=== PATIENT | male | born 1945 | race Caucasian/White ===

== ENCOUNTER 2023-02-01 17:11 | Inpatient (IN) | payer OTHER ==
[~2023-02-01] VITALS: Ht 170.2 cm; Wt 82.1 kg
[~2023-02-01 17:11] MED LIST: CARB200 PO; FAMC500 PO; HYDACE5 PO; RXHYDACE PO; VALA500 PO; [UNRECOGNIZED DRUG - CODE]
[2023-02-01] MEDS ORDERED: CHLO25B PO (17:56)
[2023-02-01] MEDS ORDERED: AMLO10 PO (17:57)
[2023-02-01] MEDS ORDERED: ATOR10 PO (17:57)
[2023-02-01] MEDS ORDERED: ERGO400 PO (17:57)
[2023-02-01] MEDS ORDERED: OMEP20ER PO (17:59)
[2023-02-01 18:46] LABS: BASOPHILS ABSOLUTE AUTO 0.06 K/mm3 (0.00-0.23); BASOPHILS PERCENT AUTO 1 % (0-2); EOSINOPHILS ABSOLUTE AUTO 0.16 K/mm3 (0.00-0.68); EOSINOPHILS PERCENT AUTO 1 % (0-6); Hematocrit 43.9 % (37.0-53.0); Hemoglobin 14.5 g/dL (13.5-17.5); IMMATURE GRAN ABSOLUTE AUTO 0.05 K/mm3 (0.00-0.10); IMMATURE GRAN PERCENT AUTO 0 % (0-1); LYMPHOCYTES ABSOLUTE AUTO 1.28 K/mm3 (0.84-5.20); LYMPHOCYTES PERCENT AUTO 10 % (21-46); MONOCYTES ABSOLUTE AUTO 0.85 K/mm3 (0.16-1.47); MONOCYTES PERCENT AUTO 7 % (4-13); Mean Corpuscular HGB 27.1 pg (26.0-34.0); Mean Corpuscular Volume 82 fL (80-100); Mean Platelet Volume 10.6 fL (9.1-12.4); NEUTROPHILS ABSOLUTE AUTO 10.14 K/mm3 (1.96-9.15); NEUTROPHILS PERCENT AUTO 81 % (41-73); Platelet Count 261 K/mm3 (150-400); RDW Coefficient Variation 14.5 % (11.7-14.2); RDW Standard Deviation 42.5 fL (35.1-46.3); Red Blood Cell Count 5.36 M/mm3 (4.30-5.90); White Blood Cell Count 12.54 K/mm3 (4.00-11.30)
[2023-02-01 19:12] LABS: Base Excess Venous 5.2 mmol/L; Bicarbonate Venous 27.9 mmol/L (24.0-30.0); PCO2 Venous 49.6 mmHg (38-42); pH Blood Venous 7.39 (7.34-7.37)
[2023-02-01 19:24] LABS: International Normalized Ratio 1.07; Prothrombin Time Results 11.2 Sec (9.7-11.5)
[2023-02-02 05:34] LABS: BASOPHILS ABSOLUTE AUTO 0.04 K/mm3 (0.00-0.23); BASOPHILS PERCENT AUTO 0 % (0-2); EOSINOPHILS ABSOLUTE AUTO 0.08 K/mm3 (0.00-0.68); EOSINOPHILS PERCENT AUTO 1 % (0-6); Hematocrit 43.6 % (37.0-53.0); IMMATURE GRAN ABSOLUTE AUTO 0.01 K/mm3 (0.00-0.10); IMMATURE GRAN PERCENT AUTO 0 % (0-1); LYMPHOCYTES PERCENT AUTO 17 % (21-46); MONOCYTES ABSOLUTE AUTO 1.02 K/mm3 (0.16-1.47); MONOCYTES PERCENT AUTO 11 % (4-13); Mean Corpuscular HGB 26.4 pg (26.0-34.0); Mean Corpuscular HGB Conc 32.1 g/dL (31.5-36.5); Mean Corpuscular Volume 82 fL (80-100); Mean Platelet Volume 10.2 fL (9.1-12.4); NEUTROPHILS ABSOLUTE AUTO 6.33 K/mm3 (1.96-9.15); NEUTROPHILS PERCENT AUTO 71 % (41-73); Platelet Count 237 K/mm3 (150-400); RDW Coefficient Variation 14.5 % (11.7-14.2); RDW Standard Deviation 43.8 fL (35.1-46.3); White Blood Cell Count 8.98 K/mm3 (4.00-11.30)
[2023-02-02 05:53] LABS: Bun/Creatinine Ratio 17.4 (12.0-20.0); Calcium, Blood 8.4 mg/dL (8.5-10.1); Creatinine, Blood 0.86 mg/dL (0.60-1.20); Potassium, Blood 3.6 mmol/L (3.5-5.5)
[2023-02-02 08:29] VITALS: BP 171/86
[2023-02-02 14:37] VITALS: BP 145/85
--- NOTE | 2023-02-02 17:31 | NUR ---
SHIFT SUMMARY: PNEUMO WITH CHEST TUBE AND BROKEN RIBS PATIENT IS A&OX4. VS ARE WNL AND IS ON RA WITH >90% OXYGEN SATS. PATIENT WAS PLACED ON WATERSEAL PER DR. ALICIA ORDERS EARLIER IN THE SHIFT AND PATIENT HAS TOLERATED IT WELL. HE HAS GAUZE AND TAPE ON THE ANTERIOR LEFT CHEST WALL THAT IS C/D/I AND PATIENT HAS DENIED SOB OR CHEST PAIN. PATIENTS LEFT SIDE RIB PAIN IS MANAGED WITH PO TRAMADOL AND IV TORADOL. HE IS A SBA TO THE BATHROOM. HE IS TOLERATING PO INTAKE AND IS VOIDING. PATIENT CALLS APPROPRIATELY. HE IS LAYING IN BED WITH FAMILY AT BEDSIDE AND CALL LIGHT IN REACH. THE PLAN IS TO HAVE ANOTHER X-RAY IN THE MORNING TO DETERMINE HIS LUNG STATUS AND TO CONTINUE PAIN MANAGEMENT.
[2023-02-02 20:00] VITALS: BP 177/89
[2023-02-02 20:29] VITALS: BP 170/100
[2023-02-02 21:32] VITALS: BP 188/96
--- NOTE | 2023-02-02 21:45 | NUR ---
CHANGES IN PT ROUGHLY AROUND 1999 THIS NURSE WAS GIVING IV DILAUDID FOR 9/10 PAIN. AFTER MEDICATION GIVEN, NOTICED PT VOICE HAD CHANGED SOUNDING MORE LIKE KASHIF DUCK. & DAUGHTER NOTICED CHANGE IN VOICE & POINTED OUT SWELLING IN L SIDE NECK. BP ELEVATED, SPO2 @92% ON 4L. PT HAD RECIEVED DILAUDID PRIOR WITH NO ADVERSE REACTIONS. ONLY NEW THING ADDED WAS PT PLACED ON CONT WALL SUCTION, TURNED OFF SUCTION SPO2 INCREASED TO 98% ON 3L. CALLED EXTRUDING PRESS OPERATOR HANNAH & DR MOSES ABOUT CHANGES. GAVE IV BENEDRYL & RETURNED PT BACK TO SUCTION PER DR MOSES ORDER. NOTICED R CHEEK & R NECK SWELLING STARTING ALONG c L SIDE NECK SWELLING. DR MOSES @BEDSIDE ROUGHLY 2049, EXPLAINED CHEST TUBE HAD BEEN DISLODGED. AT [address] MOSES AT BEDSIDE PLACING NEW [place] [facility] [place], BP STILL ELEVATED 188 SYSTOLIC, DR MOSES PLACED HOME BP MED ORDER. THIS NURSE & EXTRUDING PRESS OPERATOR HANNAH NOTICED FACIAL SWELLING HAD STARTED TO DECREASE SINCE NEW CT PLACEMENT. WILL CONT TO MONITOR PT.
[2023-02-02 23:02] VITALS: BP 168/90
[2023-02-03 02:25] VITALS: BP 152/70
--- NOTE | 2023-02-03 05:15 | NUR ---
SHIFT SUMMARY AOX4. READ PREVIOUS NOTE PLACED. THORAVENT CT TO LOW CONT SUCTION c SM AMOUNT SANGUNIOUS DRAINAGE 45ML IN CANISTER. BP ELEVATED @BEGINNING OF SHIFT, SYSTOLIC 170-180'S. PT REPORTED HE HADNT TAKEN BP MEDS IN 2 DAYS, INFORMED DR MOSES, GAVE HOME DOSE AMLODIPINE & BP SINCE TRENDED DOWN TO 152/70. HAVING INCREASED WORK OF BREATHING c DIFFICULTY TALKING IN FULL SENTENCES @BEGINNING OF SHIFT, SPO2 93% ON 4L O2-SINCE NEW CT PLACEMENT RESP E/U. REPORTS 5-02/18 PAIN L SIDE CHEST, PAIN INCREASED c COUGHING OR MOVEMENT. MEDICATED 1x c 0.5MG IV DILAUDID, TYLENOL, & IV TORADOL. CREPITUS FELT LUCW AROUND L SIDE NECK. NEW FACIAL SWELLING HAS DECREASED THIS AM FROM LAST NIGHT, HOWEVER R EYE IS ALMOST SWOLLEN SHUT, PT DOES DENY ANY VISION CHANGES. CALL LIGHT & FAMILY @BEDSIDE. WILL MONIOTOR.
[2023-02-03 07:13] VITALS: BP 143/78
--- NOTE | 2023-02-03 14:35 | NUR ---
swelling to r eye gone at this time. face and neck appear back to normal. crepitus still felt around chest. pt able to stand and transfer to bed well. no increased sob at this time. chest tube continues to be connected to suction
[2023-02-03 15:03] VITALS: BP 151/83
--- NOTE | 2023-02-03 16:28 | NUR ---
SHIFT SUMMARY L SIDE PNEUMOTHORAX. PT FACIAL SWELLING CONTINUES TO CHANGE T/O SHIFT BUT OVERALL DECREASED OVER SHIFT. MINIMAL SWELLING TO R EYE AT THIS TIME. CREPTIUS PALPABLE FROM CHEST TO HEAD. PT REPORTS SHORTNESS OF BREATH IS MINIMAL, JUST RELATED TO PAIN AT THIS TIME. WATER SEAL REMAINS AT -20 TO CONTINOUS SUCTION. TOLERATING DIET WELL. CALLS APPROPRIATLY.
[2023-02-03 20:04] VITALS: BP 142/74
[2023-02-04 02:35] VITALS: BP 159/94
--- NOTE | 2023-02-04 06:32 | NUR ---
SHIFT SUMMARY AOX4. VSS. DENIES N/V. REPORTS 5-910 PAIN IN L SIDE/CHEST & AREAS PT HAD FACIAL SWELLING. MEDICATED 2x c TYLENOL & ULTRAM, PT ABLE TO REST WELL T/O NIGHT. SPO2 >90% ON 2L O2. GETS MILDLY DYSPNIC c WALKING. BREATH SOUNDS DIM T/O c SCATTERED EXP WHEEZES L LOBES. THORAVENT IN PLACE TO LUCW, TO CONT SUCTION. PT HAS SCATTERED CREPITUS T/O NECK, CHEEKS, R EYELID, L UPPER BACK. CALL LIGHT & AT BEDSIDE.
[2023-02-04 07:52] VITALS: BP 140/90
[2023-02-04 15:24] VITALS: BP 153/82
--- NOTE | 2023-02-04 16:50 | NUR ---
SHIFT SUMMARY PT HAS BEEN ON ROOM AIR DURING SHIFT. HE DENIES ANY SOB. REPORTS PAIN INCREASES WITH DEEP INHILATION. MEDICATION PER EMAR. PT USING INCENTIVE SPIROMETER. 1 ASSIST WITH TRANSFER AND MOVEMENT. CHEST TUBE REMAINS CONNECTED TO SUCTION AT -20. CALLS APPROPRIATLY, DENIES FURTHER NEEDS AT THIS TIME.
[2023-02-04 19:30] VITALS: BP 151/90
[2023-02-05 04:58] VITALS: BP 151/95
--- NOTE | 2023-02-05 05:26 | NUR ---
SHIFT SUMMARY NO ACUTE CHANGES THIS SHIFT. AOX4. VSS. REPORTS 6/10 L SIDE PAIN, MEDICATED c TYLENOL & PO ULTRAM 2x & PT ABLE TO REST COMFORTABLY. PAIN WORSE c MOVEMENT OR COUGHING. THORAVENT TO LUCW INTACT c CONT SUCTION. DRAINAGE IN CHEAST TUBE A CLEAR ORANGE IN COLOR. REPORTS MILD DYSPNEA WHEN UP AMBULATING IN RM c ASSIST. SPO2 >90%, USES 1-2L PRN. BREATH SOUNDS DIM L SIDE. CALL LIGHT & FAMILY AT BEDSIDE, WILL MONITOR.
[2023-02-05 07:17] VITALS: BP 165/84
--- NOTE | 2023-02-05 13:28 | NUR ---
Patient is sitting on a chair and alert. His spouse, Macarena is present. They talk about the event that led to patient's hospitalization, what medical care he has received and the plan of care moving forward. Patient and Macarena then talk about their family and all the kids and grandkids and then more specifically about their son in law who was recently in a motorcycle accident that left him a quadriplegic. They also share about their [employer] marybel and how they lean into God and find strength to face whatever comes at them. They are pleasant and speak kindly to each other and to those who came into the while I was present. I provide the conversations around their marybel that clearly are encouraging to them, as well as, recitation of scripture, gentle milieu counselor and prayer. They both responded well and showed signs of being uplifted in their marybel.
--- NOTE | 2023-02-05 14:40 | NUR ---
SATS WHEN SLEEPING DROPPED TO 89%; 1L NC PLACED & RECOVERED.
[2023-02-05 16:04] VITALS: BP 161/86
--- NOTE | 2023-02-05 19:23 | NUR ---
SHIFT SUMMARY PT HAS DONE WELL TODAY. CHEST TUBE HAS LIGHT BUBBLING T/O SHIFT. DENIES SOB. PAIN WELL CONTROLLED. VSS. UP TO CHAIR SEVERAL TIMES. WAS ABLE TO HAVE BM.
[2023-02-05 19:35] VITALS: BP 161/93
[2023-02-05 23:36] VITALS: BP 152/94
--- NOTE | 2023-02-06 04:44 | NUR ---
UPDATE PT IS SITTING UP IN CHAIR, RESP LABORED, SPO2 87% ON RA, LUNG SOUNDS ABSENT ON LEFT SIDE, CREPITUS NOTED, PLUERAL CATH APPEARS TO BE PULLED OUT APPROX 1/2 INCH COMPARED TO ORIGINAL ASSESSMENT, PT PLACED ON 2L O2 VIA NC, PAIN MEDICINE GIVEN, CONSTRUCTION ASSISTANT IN ROOM TO EVALUATE, SCHEDULED 0500 CHEST XRAY CHANGED TO NOW, PORTABLE XRAY IN ROOM NOW. FAMILY AT BEDSIDE, CALL LIGHT IN REACH, WCTM
--- NOTE | 2023-02-06 06:40 | NUR ---
UPDATE PT REMAINS A&O X4, UP IN CHAIR, FAMILY AT BEDSIDE, PT STATES HIS WORK OF BREATHING IMPROVED WITH PAIN MEDICATION, SPO2 >94% ON 2 L/MIN 02 VIA NC, LUNG SOUNDS REMAIN DIM/ABSENT TO L.SIDE, PT WAS ABLE TO CLEAR SOME SECRETIONS WITH COUGHING, CHEST XRAY COMPLETED, WAITING ON RESULTS, VSS.IV ACCESS OBTAINED IN RFA, DENIES NEED FPR BREAKTHROUGH PAIN MEDS, CT CONTINUES TO HAVE A SM AIR LEAK, LEAK HAS BEEN NOTED IN MD NOTES, SS FLUID NOTED IN TUBE, PT STRONGLY ENC TO CALL FOR ASSISTANCE WHEN GETTING OOB DUE TO CT PLACEMENT AND POSSIBLE DISLODGEMENT. RESP UNLABORED AT THIS TIME, SPO2 95% ON 2 L/MIN, WCTM & REPORT TO DAY RN, CALL LIGHT IN REACH, FAMILY AT BEDSIDE.
--- NOTE | 2023-02-06 14:14 | NUR ---
Patient is sitting on a chair and immediately tells me about his rough night and the complications with his lungs. His spouse Macarena is present and shares about how they were a weary yet hopeful. They share more about their grown children and about their marybel. I listen empathically and provide prayer. Patient responded well and showed signs of an greater peace. I will cotninue to remain avaliable to patient and family.
[2023-02-06 15:31] VITALS: BP 158/83
--- NOTE | 2023-02-06 17:01 | NUR ---
DR GRIMES BY & CHANGED SUCTION FROM -20 TO -30.
--- NOTE | 2023-02-06 19:17 | NUR ---
SHIFT SUMMARY PT HAS BEEN ON RA MOST OF SHIFT. 2L NC PLACED ONCE WHILE RESTING IN BED. L SIDE CONT's TO BE DIM. IS GOOD ABOUT DEEP BREATHING & USES IS. DENIES CHANGES IN BREATHING SINCE CHANGE IN CT PRESSURE. PLEASANT & COOPERATIVE.
[2023-02-06 19:50] VITALS: BP 160/92
[2023-02-07] VITALS (8 sets, daily range): BP systolic 131–178; BP diastolic 77–103
--- NOTE | 2023-02-07 05:29 | NUR ---
SHIFT SUMMARY NO ACUTE EVENTS OVERNIGHT, PATIENT ON RA T/O SHIFT WITH SPO2 REMAINING ABOVE 92%. REPORTS SOME PAIN IN LEFT SIDE RIBS WHEN MOVING OR BREATHING IN DEEP. MEDICATED PER EMAR. TOLERATED WELL. PATIENT WAS ABLE TO REST T/O NIGHT UP TO BATHROOM WITH SBA, VOIDING T/O NIGHT. DAUGHTER IN ROOM FOR ASSISTANCE AND COMFORT. NPO SINCE MIDNIGHT EXCEPT FOR SIPS WITH PILLS. PATIENT REPORTS BREATHING IS BETTER SINCE SX CHANGED. VSS, CALL LIGHT IN REACH.
--- NOTE | 2023-02-07 13:29 | NUR ---
PT TO OR AT APROX 1329
--- NOTE | 2023-02-07 14:17 | NUR ---
LATE ENTRY FOR 1315. PT ARRIVED TO UNIT VIA GURN, TRANSFERERD INDEPENDENTLY TO [facility] FROM HOSPITAL BED. Patient confirms NPO status and agrees with scheduled surgery. VSS. IV IN RIGHT HAND INFILTRATED, NEW 18G STARTED IN LEFT HAND.
--- NOTE | 2023-02-07 14:31 | NUR ---
02/07/23 1431 Valeriy Givens 30F CHEST TUBE PLACED BY DR GRIMES IN LEFT CHEST WALL. PLACEMENT VERIFIED BY STAT PORTABLE CHEST X RAY AND OKAYED BY DR GRIMES IN ROOM. 100ML STERILE SEROSANGUINOUS FLUID OUT, DR GRIMES AWARE AND OKAYED TRANSPORTATION BACK TO SURGICAL FLOOR WITH WATER SEAL.
--- NOTE | 2023-02-07 14:47 | NUR ---
1300-PT TRANSPORTED TO DAYSURGERY ON STRETCHER 1430-PT TRANSPORTED TO ROOM VIA STRETCHER. POST OP VS COMMENCED AND STABLE. PT STOOD AND TRANSFERRED HIMSELF FROM STRETCHER, NO N/V, TOLERATING PO INTAKE, MEDICATED PER MAR FOR PAIN RATING OF 7/10. FAMILY IN ROOM
--- NOTE | 2023-02-07 15:09 | NUR ---
CHEST TUBE SITE l POSTERIOLATERAL CHEST DRESSING C/D/I, TUBE DRAINING SEROSANGUINOUS FLUID, CONTINUOUS SUCTION -20
--- NOTE | 2023-02-07 16:59 | NUR ---
1600-pt layed back in bed, began having increased respiratory effort, increased pain in the left flank/posterior chest area. Tegaderm placed over the previously removed uresil side L anterior chest showing raised air bubble over site. lungs sounds diminised in the left from the right side, few auscultated crepitous sounds from previous auscultation, diminished air movement auscultated. Pt appears anxious/painful, worried. notified Dr Hamm via telephone, received order for portable chest x-ray, change tegaderm dressing. Provided pt with analgesia per MAR, chest x-ray complete. Assessed chest tube air seal, WNL, no leaks indicated. 1630- Pt reports pain at 6-7/10, moved to recliner chair, reports feeling more comfortable, appears more relaxed. New tegaderm showing small air bubble. Will recheck/reassess. Encouraged pt and family to call this RN if any changes. feeling better after analgesia
--- NOTE | 2023-02-07 17:13 | NUR ---
Spiritual care provided, Therapeutic listening and prayer. Patient showed signs of an elevated mood.
[2023-02-08 00:03] VITALS: BP 136/77
[2023-02-08 03:54] VITALS: BP 127/76
--- NOTE | 2023-02-08 05:15 | NUR ---
SHIFT SUMMARY PATIENT IS UP IN CHAIR T/O SHIFT, REPORTS PAIN WHEN MOVING AND DEEP BREATHING. MEDICATED WITH TRAMADOL AND TYLENOL. ABLE TO TOLERATE GETTING UP WITH SBA TO BATHROOM. CHEST TUBE TO LEFT LATERAL/AXILLIARY. SX TO -20 AND NO AIR LEAK NOTED. CONT. BIOX IN PLACE AND SATS REMAIN ABOVE 94% ON 2 L NC 02. RE-INFORCED GAUZE DRESSING TO CHEST TUBE. DRAINNING SS DRNG. VSS. CALL LIGHT IN REACH.
[2023-02-08 08:18] VITALS: BP 139/75
[2023-02-08 08:22] VITALS: BP 139/75
--- NOTE | 2023-02-08 09:59 | NUR ---
ASSUMPTION OF CARE ASSUMED CARE AT APPROX 0700. VSS. PT AOX4, EASILY AROUSABLE TO VERBAL STIMULI. FAMILY PRESENT AT BEDSIDE. ALL PLEASANT AND RECEPTIVE TO EDUCATION. POD [address] PLACEMENT L CHEST WALL. SEROSANGUINOUS DRAINAGE ASSESSED AT SITE. DRESSING CHANGED BY DR. GRIMES THIS MORNING. DIMINISHED LUNG SOUNDS TO L AND CRACKLES AUSCULTATED T/O LOWER LOBES. PT CURRENTLY ON 1L VIA NC, SATS >92%. CHEST XRAY OBTAINED THIS MORNING. CT COLLECTION CHAMBER PATENT, SEE ASSESSMENT FOR MORE INFO. SEROSANGUINOUS DRAINAGE ASSESSED IN CHAMBER. PAIN MANAGED W/ ORDERED TRAMADOL AND TYLENOL. PT CURRENTLY SITTING IN CHAIR, UP W/ SBA FOR DEVICE/CORD MANAGEMENT. FAMILY ASSISTS W/ MOBILITY. CALL LIGHT WITHIN REACH.
--- NOTE | 2023-02-08 15:53 | NUR ---
Patient shows signs of improvement today. I encourage self care for Macarena pt's spouse. We discuss recovery and things they will do once recovered. I provide prayer, encouragement and levity. Family and patient responded well displaying evidence of new energy and restored hope. I will continue to remain available.
[2023-02-08 16:21] VITALS: BP 140/75
--- NOTE | 2023-02-08 18:22 | NUR ---
SHIFT SUMMARY NO ACUTE CHANGES THIS SHIFT. PT SLEPT T/O THE MORNING AND AFTERNOON. VSS. ON 1-2L VIA NC, SATS 93-95%. CHEST TUBE DRAINING SEROSANGUINOUS DRAINAGE. DRESSING IS C/D/I, NO SHADOWING ASSESSED. NO INCREASE IN CREPITUS OR CHANGES IN LUNG SOUNDS. CHEST XRAY PERFORMED TODAY. PAIN MANAGED W/ TYLENOL AND TRAMADOL ORDERED. AMBULATING IN W/ SBA FOR CORD/DEVICE MANAGEMENT. UP TO CHAIR FOR MEALS. FAMILY AT BEDSIDE T/O SHIFT ASSISTING IN CARE. VOIDING. TOLERATING PO INTAKE. WILL REPORT TO ONCOMING RN.
[2023-02-08 19:49] VITALS: BP 145/71
[2023-02-09 04:13] VITALS: BP 145/78
--- NOTE | 2023-02-09 04:42 | NUR ---
SHIFT SUMMARY NO ACUTE CHANGES OVERNIGHT. A&O X4. PT REPORTED DIFFICULTY SLEEPING IN CHAIR. PT MAINTAINED 02 SAT >94% ON 1.5L NC, VS WNL FOR PT. NO SIGNIFICANT CHANGES IN LUNG AUSCULTATION. CREPITUS DECREASED OVERNIGHT, LOCALIZED TO L UPPER ANTERIOR CHEST AND L UPPER POSTERIOR BACK. CHEST TUBE DRAINING SEROSANGUINOUS FLUID. DRESSING C/D/I. PT REPORTS PAIN WITHIN ACCEPTABLE LIMITATIONS. XRAY PLANNED LATER IN AM. FAMILY STAYED OVERNIGHT WITH PT. CALL LIGHT WITHIN REACH, WILL REPORT TO DAY NURSE.
[2023-02-09 07:36] VITALS: BP 121/74
--- NOTE | 2023-02-09 08:20 | NUR ---
CHEST TUBE PLACED TO WATER SEAL AT THIS TIME PER DR. GRIMES VERBAL ORDER.
[2023-02-09 14:28] VITALS: BP 124/54
--- NOTE | 2023-02-09 16:40 | NUR ---
SHIFT SUMMARY PT DOING WELL TODAY SINCE CHEST TUBE PLACED TO WATER SEAL THIS MORNING. NO S/S RESPIRATORY DISTRESS NOTED. SATS >90% ON RA WITH CONT BIOX IN PLACE. TRAMADOL + TYLENOL FOR PAIN MANAGEMENT. INDEP IN ROOM AND WITH AMBULATION IN HALLWAY. AT BEDSIDE FOR SUPPORT. USES CALL LIGHT APPROPRIATELY. REPEAT CHEST XRAY FOR TOMORROW AND POSSIBLE DISCHARGE HOME.
[2023-02-09 19:14] VITALS: BP 128/74
--- NOTE | 2023-02-09 22:25 | NUR ---
RESPIRATORY UPDATE. PT AMBULATED TO THE BATHROOM AND OXYGEN DESATURATED TO 88%. THIS RN LAID VISUAL ON PT AND INSTRUCTED PT TO TAKE DEEP BREATHS. PT'S OXYGEN RETURNED TO 95%. PT DENIES CHEST PAIN OR SHORTNESS OF BREATH AT THIS TIME.
[2023-02-10 04:12] VITALS: BP 127/68
--- NOTE | 2023-02-10 05:22 | NUR ---
SHIFT SUMMARY NOC. PT REPORTED REST DURING THIS SHIFT. PT AMBULATED TO BR WELL. TOLERATING PO INTAKE. PT CHEST TUBE DRESSING IS CLEAN DRY AND INTACT. CHEST TUBE IS CLOSED CIRCUIT. PT MEDICATED FOR PAIN WITH RELIEF OF PAIN. CREPITUS PRESENT IN LEFT ANTERIOR CHEST AND LUQ ABDOMEN. DRESSING ON LEFT ELBOW CHANGED AT BEGINING OF THIS SHIFT.
[2023-02-10 07:28] VITALS: BP 134/77
--- NOTE | 2023-02-10 14:03 | NUR ---
BACK FROM IMAGING. SITTING UP IN RECLINER.
[2023-02-10 14:52] VITALS: BP 124/68
[2023-02-10] MEDS ORDERED: TRAM50 PO (16:54)
[2023-02-10 16:56] VITALS: BP 135/76
--- NOTE | 2023-02-10 17:48 | NUR ---
DISCHARGED DC'D IV, CATHETER INTACT. REVIEWED DC INSTRUCTIONS WITH PT AND SPOUSE, BOTH VERBALIZED UNDERSTANDING. LEFT UNIT BY AMBULATION, DECLINING WC. ACCOMPANIED BY SPOUSE WHO HAD PT'S POSSESSIONS AND DC PAPERWORK IN HAND.
== END 2023-02-10 17:18 | disposition home or self-care (01) | DRG 200 ==
LOC: ER 17:11 → MEDS 22:39 → ER 22:39 → ERHOLD 23:59 → SURS 23:59
PROVIDERS: Emergency Medicine; ADMIT Surgery
PROC: 0W9B30Z Drainage of Left Pleural Cavity with Drainage Device, Percutaneous Approach (ICD-10-PCS; 2023-02-02)
PROC: 0WPB30Z Removal of Drainage Device from Left Pleural Cavity, Percutaneous Approach (ICD-10-PCS; 2023-02-07)
PROC: 0W9B30Z Drainage of Left Pleural Cavity with Drainage Device, Percutaneous Approach (ICD-10-PCS; principal; 2023-02-07 13:00)
DX: S27.0XXA Traumatic pneumothorax, initial encounter (principal); S22.32XA Fracture of one rib, left side, initial encounter for closed fracture; T79.7XXA Traumatic subcutaneous emphysema, initial encounter; I10 Essential (primary) hypertension; F17.210 Nicotine dependence, cigarettes, uncomplicated; R91.1 Solitary pulmonary nodule; Z79.899 Other long term (current) drug therapy; Z98.890 Other specified postprocedural states; Z96.641 Presence of right artificial hip joint; W01.0XXA Fall on same level from slipping, tripping and stumbling without subsequent striking against object, initial encounter
CPT/HCPCS: 32551; 71045; 71046; 71260; 74177; 80048; 82803; 84484; 85025; 85610; 85730; 86850; 86900; 86901; 93005; 93010; 94760; 94762; 96374; 96375; 96376; 99285-25; A9270; J0690; J1170; J1200; J1650; J1885; J2270; J3010; J7120; Q9967

== ENCOUNTER 2025-01-11 14:25 | Emergency (ER) | payer OTHER ==
[~2025-01-11] VITALS: Ht 170.2 cm; Wt 83.0 kg
[~2025-01-11 14:25] MED LIST changes: +AMLO10 PO; +ATOR10 PO; +CHLO25B PO; +ERGO400 PO; +OMEP20ER PO; +TRAM50 PO
[2025-01-11] MEDS ORDERED: Ketorolac Tromethamine 15mg Vial IM ONE ×2 (15:20→18:10)
[2025-01-11] MEDS ORDERED: ACET500 PO (17:48)
[2025-01-11 18:30] VITALS: BP 149/74
== END 2025-01-11 18:49 | disposition home or self-care (01) ==
LOC: ER 14:25
DX: M16.12 Unilateral primary osteoarthritis, left hip (principal); I10 Essential (primary) hypertension; K21.9 Gastro-esophageal reflux disease without esophagitis; J44.9 Chronic obstructive pulmonary disease, unspecified; F17.210 Nicotine dependence, cigarettes, uncomplicated; Z88.8 Allergy status to other drugs, medicaments and biological substances; Z79.899 Other long term (current) drug therapy
CPT/HCPCS: 73502; 96372; 99283-25; A9270; J1885